=== PATIENT | female | born 1970 | race Caucasian/White ===

== ENCOUNTER → 2017-10-09 | Outpatient (CLI) | payer BC ==
[2013-06-17 06:53] VITALS: BP 114/78
--- NOTE | 2017-10-09 15:13 | US ---
HISTORY: Abnormal renal function tests Study: Renal ultrasound: Multiplanar ultrasonographic examination of the kidneys was performed. Comparison: None Findings: Overall examination of the kidneys demonstrate them to be of normal size, echogenicity and echotextur e bilaterally. Mild cortical thinning is noted in both kidneys. Right kidney: 10.4 cm in length by 4.7 x 6.1 cm. There are least 2 cysts present. The largest broderick ures approximately 2.4 x 2.1 x 1.6 cm. Left kidney: 9.9 cm in length by 5.2 x 5.4 cm. There is what appears to be a cyst present measuring a maximum of 2.2 cm. IMPRESSION: 1. Both kidneys show mild cortical thinning. 2. Bilateral renal cyst appearing simple. Reported By:
== END ==
LOC: RAD 10:54
PROVIDERS: ATTEND Internal Medicine Nephrology
DX: R79.0 Abnormal level of blood mineral (principal)
CPT/HCPCS: 76770